=== PATIENT | female | born 1950 | race African-American/Black ===

== ENCOUNTER 2021-04-19 18:59 | Emergency (ER) | payer MEDICARE, OTHER ==
[~2021-04-19] VITALS: Ht 167.6 cm; Wt 102.3 kg
[2021-04-19] MEDS ORDERED: METF-1211 PO (19:13)
[2021-04-19] MEDS ORDERED: SODIUM CHLORIDE 0.9% 100 ML ONE (19:13)
[2021-04-19] MEDS ORDERED: ATOR20TA65 PO (19:13)
[2021-04-19] MEDS ORDERED: LISI20TA24 PO (19:13)
[2021-04-19] MEDS ORDERED: DULO60CA98 PO (19:13)
[2021-04-19] MEDS ORDERED: HYDR25TA84 PO (19:13)
[2021-04-19] MEDS ORDERED: FURO20TA4 PO (19:13)
[2021-04-19] MEDS ORDERED: AMLO5TAB66 PO (19:13)
[2021-04-19] MEDS ORDERED: IOHEXOL 350 MG/ML 100 ML VIAL ONE (19:13)
[2021-04-19] MEDS ORDERED: ASPIRIN 81 MG CHEWABLE TABLET PO ONE (19:45)
[2021-04-19 20:33] LABS: BASOPHILS % (AUTO) 0.6 % (0.0-2.0); EOSINOPHILS % (AUTO) 1.7 % (1.0-6.0); HEMATOCRIT 37.9 % (36-46); HEMOGLOBIN 12.9 g/dL (12.0-16.0); LYMPHOCYTES # (AUTO) 0.9 K/uL (1.0-4.8); LYMPHOCYTES % (AUTO) 10.9 % (22.0-44.0); MEAN CORPUSCULAR HEMOGLOBIN 29.1 pg (26.0-34.0); MEAN CORPUSCULAR VOLUME 86 fL (80-100); MONOCYTES # (AUTO) 0.4 K/uL (0.1-1.0); MONOCYTES % (AUTO) 5.4 % (2.0-9.0); NEUTROPHILS # (AUTO) 6.4 K/uL (1.8-7.7); NEUTROPHILS % (AUTO) 81.4 % (40.0-70.0); PLATELET COUNT (AUTO) 290 K/uL (150-450); RED BLOOD CELL COUNT(AUTO) 4.43 MIL/uL (4.00-5.20); RED CELL DISTRIBUTION WIDTH 14.6 % (11.5-14.5)
[2021-04-19 20:36] LABS: COVID AG,FIA SOURCE NASOPHARYNGEAL
[2021-04-19 20:41] LABS: CALCIUM, TOTAL 9.7 mg/dL (8.8-10.5); CREATININE 1.54 mg/dL (0.60-1.30); POTASSIUM 3.7 mmol/L (3.5-5.1)
[2021-04-19 20:46] LABS: PROTHROMBIN TIME 10.3 SEC (9.4-11.6)
[2021-04-19 20:47] LABS: ALBUMIN 3.4 g/dL (3.4-5.0); BILIRUBIN,TOTAL 0.4 mg/dL (0.1-1.0); TOTAL PROTEIN, SERUM 8.5 g/dL (6.4-8.2)
[2021-04-19] MEDS ORDERED: IBUPROFEN 600 MG TABLET PO ONE (21:45)
[2021-04-20 00:03] VITALS: BP 158/96
== END 2021-04-20 01:15 | disposition short-term general hospital (02) ==
LOC: EMS 19:00
DX: I63.9 Cerebral infarction, unspecified (principal); I10 Essential (primary) hypertension; E11.9 Type 2 diabetes mellitus without complications; E78.00 Pure hypercholesterolemia, unspecified; Z20.822 Contact with and (suspected) exposure to COVID-19
CPT/HCPCS: 36415; 70450; 70496; 71045; 80053; 82962; 84484; 85025; 85610; 87426; 93005; 99291; J7050; Q9967